=== PATIENT | male | born 1960 | race Hispanic/Latino ===

== ENCOUNTER 2021-02-21 22:33 | Emergency (ER) | payer SELFPAY | END 2021-02-21 23:47 | LOC: ERS 22:33 | DX: Z04.1 Encounter for examination and observation following transport accident (principal) | CPT/HCPCS: 99283 ==

== ENCOUNTER 2025-04-01 14:04 | Inpatient (IN) | payer SELFPAY ==
[2025-04-01 17:17] LABS: Anion Gap 16 mmol/L (10-20); BUN (Urea Nitrogen) 57 mg/dL (8.4-25.7); Calc. Creatinine Clearance 0 mL/min (70-130); Calcium 9.7 mg/dL (7.8-10.44); Carbon Dioxide 11 mmol/L (23-31); Chloride 110 mmol/L (98-107); Glucose 104 mg/dL (80-115); Potassium 6.0 mmol/L (3.5-5.1); Sodium 131 mmol/L (136-145)
[2025-04-01 18:02] LABS: #Basophils 0.08 10x3/uL (0.0-0.2); #Eosinophils 0.49 10x3/uL (0.0-0.7); #Monocytes 0.85 10x3/uL (0.11-0.59); #Neutrophils 5.82 10x3/uL (1.40-6.50); %Basophils 0.9 % (0.0-1.0); %Eosinophils 5.3 % (0.0-10.0); %Lymphocytes 20.4 % (21.0-51.0); %Monocytes 9.3 % (0.0-10.0); %Neutrophils 63.4 % (42.0-75.0); Hematocrit 46.2 % (42.0-52.0); Hemoglobin 14.5 g/dL (14.0-18.0); Mean Corpuscular Hemoglobin 28.1 pg (27.0-31.0); Mean Corpuscular Volume 89.5 fL (78.0-98.0); Platelet Count 480 10x3/uL (130-400); Red Blood Cell (RBC) Count 5.16 mill/uL (4.70-6.10); White Blood Cell (WBC) Count 9.17 10x3/uL (4.8-10.8)
[2025-04-01 18:15] LABS: Magnesium 2.6 mg/dL (1.6-2.6)
[2025-04-01] MEDS ORDERED: Dextrose 50% Abboject 50 ML SYRINGE ONE (18:16)
[2025-04-01] MEDS ORDERED: CALCIUM GLUC 1 GM/NS 50 ML IV Bag ONE (18:16)
[2025-04-01] MEDS ORDERED: Calcium Carbonate 500 MG ChewTAB PO PRN (19:48)
[2025-04-01] MEDS ORDERED: Senokot S 8.6-50 MG TAB PO PRN (19:48)
[2025-04-01] MEDS ORDERED: Ondansetron PF 4 MG/2 ML Vial IVP PRN (19:48)
[2025-04-01] MEDS ORDERED: Electrolyte Replacement Protocol 1 EACH FS SCH (20:00)
[2025-04-01 21:25] VITALS: BMI 31.4
[2025-04-01] MEDS: hydrALAZINE 20 MG/ML VIAL SLOW IVP PRN (21:27)
[2025-04-01 21:45] LABS: Potassium 5.5 mmol/L (3.5-5.1)
[2025-04-02 04:48] LABS: #Basophils 0.05 10x3/uL (0.0-0.2); #Eosinophils 0.41 10x3/uL (0.0-0.7); #Monocytes 0.90 10x3/uL (0.11-0.59); #Neutrophils 6.73 10x3/uL (1.40-6.50); %Basophils 0.5 % (0.0-1.0); %Eosinophils 4.2 % (0.0-10.0); %Lymphocytes 15.5 % (21.0-51.0); %Monocytes 9.3 % (0.0-10.0); %Neutrophils 69.9 % (42.0-75.0); Hematocrit 42.7 % (42.0-52.0); Hemoglobin 13.7 g/dL (14.0-18.0); Mean Corpuscular Hemoglobin 28.7 pg (27.0-31.0); Mean Corpuscular Volume 89.3 fL (78.0-98.0); Platelet Count 397 10x3/uL (130-400); Red Blood Cell (RBC) Count 4.78 mill/uL (4.70-6.10); White Blood Cell (WBC) Count 9.65 10x3/uL (4.8-10.8)
[2025-04-02 07:22] LABS: Anion Gap 15 mmol/L (10-20); BUN (Urea Nitrogen) 52 mg/dL (8.4-25.7); Calc. Creatinine Clearance 46 mL/min (70-130); Calcium 9.1 mg/dL (7.8-10.44); Carbon Dioxide 13 mmol/L (23-31); Chloride 116 mmol/L (98-107); Glucose 117 mg/dL (80-115); Potassium 5.5 mmol/L (3.5-5.1); Sodium 138 mmol/L (136-145)
[2025-04-02] MEDS: Aspirin 81 mg Enteric Coated Tablet PO SCH (08:24)
[2025-04-02] MEDS: Carvedilol 25 MG TAB PO SCH (08:24)
[2025-04-02] MEDS: Acetaminophen 325 MG TAB PO PRN (08:24)
[2025-04-02] MEDS: LOKELMA 10 GM PACKET PO SCH (11:16)
[2025-04-02] MEDS: HYDROcodone/Acetaminophen 5/325 mg Tablet PO PRN (13:24)
[2025-04-02 16:17] LABS: Anion Gap 15 mmol/L (10-20); BUN (Urea Nitrogen) 58 mg/dL (8.4-25.7); Calc. Creatinine Clearance 40 mL/min (70-130); Calcium 9.2 mg/dL (7.8-10.44); Carbon Dioxide 12 mmol/L (23-31); Chloride 114 mmol/L (98-107); Glucose 140 mg/dL (80-115); Potassium 5.3 mmol/L (3.5-5.1); Sodium 136 mmol/L (136-145)
[2025-04-03 00:55] LABS: Campy jejuni + coli by PCR Negative (Negative); STEC Shiga Toxin 1+2 Negative (Negative); Salmonella spp. by PCR Negative (Negative); Shigella spp + EIEC by PCR Negative (Negative)
[2025-04-03 05:42] LABS: Anion Gap 12 mmol/L (10-20); BUN (Urea Nitrogen) 54 mg/dL (8.4-25.7); Calc. Creatinine Clearance 51 mL/min (70-130); Calcium 9.1 mg/dL (7.8-10.44); Carbon Dioxide 14 mmol/L (23-31); Chloride 115 mmol/L (98-107); Glucose 109 mg/dL (80-115); Potassium 4.6 mmol/L (3.5-5.1); Sodium 136 mmol/L (136-145)
[2025-04-03 06:04] LABS: Free T4 (Free Thyroxine) 1.04 ng/dL (0.70-1.48); Thyroid Stimulating Hormone 3.4712 uIU/mL (0.35-4.94)
[2025-04-03] MEDS ORDERED: Dextrose 50% Abboject 50 ML SYRINGE SLOW IVP PRN (10:50)
[2025-04-03] MEDS ORDERED: Glucagon 1 MG/ML KIT IM PRN (10:50)
[2025-04-03 15:44] VITALS: BMI 31.4
[2025-04-03] MEDS: Gabapentin 100 MG CAP PO SCH (20:09)
[2025-04-04 05:05] LABS: #Basophils 0.03 10x3/uL (0.0-0.2); #Eosinophils 0.34 10x3/uL (0.0-0.7); #Monocytes 0.97 10x3/uL (0.11-0.59); #Neutrophils 6.22 10x3/uL (1.40-6.50); %Basophils 0.3 % (0.0-1.0); %Eosinophils 3.9 % (0.0-10.0); %Lymphocytes 13.1 % (21.0-51.0); %Monocytes 11.1 % (0.0-10.0); %Neutrophils 71.4 % (42.0-75.0); Hematocrit 35.5 % (42.0-52.0); Hemoglobin 11.7 g/dL (14.0-18.0); Mean Corpuscular Hemoglobin 29.5 pg (27.0-31.0); Mean Corpuscular Volume 89.4 fL (78.0-98.0); Platelet Count 257 10x3/uL (130-400); Red Blood Cell (RBC) Count 3.97 mill/uL (4.70-6.10); White Blood Cell (WBC) Count 8.72 10x3/uL (4.8-10.8)
[2025-04-04 05:17] LABS: Anion Gap 12 mmol/L (10-20); BUN (Urea Nitrogen) 38 mg/dL (8.4-25.7); Calc. Creatinine Clearance 71 mL/min (70-130); Calcium 9.1 mg/dL (7.8-10.44); Carbon Dioxide 16 mmol/L (23-31); Chloride 113 mmol/L (98-107); Glucose 116 mg/dL (80-115); Potassium 4.6 mmol/L (3.5-5.1); Sodium 136 mmol/L (136-145)
[2025-04-04] MEDS: Dapagliflozin Propanediol 10 MG TAB PO SCH (08:36)
[2025-04-04] MEDS: Lisinopril 5 MG TAB PO SCH (16:50)
[2025-04-04] MEDS: Melatonin 3 MG TAB PO PRN (21:38)
[2025-04-05 07:22] LABS: Anion Gap 12 mmol/L (10-20); BUN (Urea Nitrogen) 28 mg/dL (8.4-25.7); Calc. Creatinine Clearance 75 mL/min (70-130); Calcium 9.3 mg/dL (7.8-10.44); Carbon Dioxide 18 mmol/L (23-31); Chloride 110 mmol/L (98-107); Glucose 112 mg/dL (80-115); Magnesium 1.9 mg/dL (1.6-2.6); Potassium 4.2 mmol/L (3.5-5.1); Sodium 136 mmol/L (136-145)
[2025-04-05] MEDS: Lisinopril 5 MG TAB PO SCH (09:28)
[2025-04-05 16:58] VITALS: BP 162/69; TEMP 98.7
[2025-04-08 15:16] LABS: EliA RAS New Method **** NEW METHOD ****; Rheumatoid Factor IgM Antibody Less than 0.6 IU/mL (<3.5 Negative)
== END 2025-04-05 18:10 | disposition home or self-care (01) | DRG 683 ==
LOC: ERS 14:04 → 2NO 18:24
PROVIDERS: ADMIT Family Medicine; ATTEND Internal Medicine
DX: N17.9 Acute kidney failure, unspecified (principal); E87.20 Acidosis, unspecified; I50.32 Chronic diastolic (congestive) heart failure; I11.0 Hypertensive heart disease with heart failure; E66.9 Obesity, unspecified; E87.5 Hyperkalemia; Z68.31 Body mass index [BMI] 31.0-31.9, adult; E78.5 Hyperlipidemia, unspecified; I16.0 Hypertensive urgency; E11.9 Type 2 diabetes mellitus without complications; Z79.82 Long term (current) use of aspirin; Z79.899 Other long term (current) drug therapy
CPT/HCPCS: 36415; 36416; 72141; 80048; 82550; 83036; 83520; 83735; 83880; 84439; 84443; 85025; 87324; 87449; 87505; 93005; 96361; 96374; 96375; J0360; J0613; J1815; J7030; J7120; J7999